=== PATIENT | male | born 1965 | race Caucasian/White ===

== ENCOUNTER 2018-01-11 12:22 | Emergency (ER) | payer OTHER ==
--- NOTE | 2018-01-11 13:34 | ED Physician Documentation ---
History of Present Illness - Stated complaint Stated Complaint: LOWER BODY SWELLING - Chief complaint Chief Complaint: General - History obtained from History obtained from: Patient, Family - History of Present Illness Timing: How many weeks ago (several) Pain level max: 0 Pain level now: 0 Improved by: nothing Worsened by: nothing - Additonal information Additional information: Patient is a 52-year-old male who has not seen a doctor for approximately 10 years, states that 3-4 weeks ago started noting swelling in the bilateral lower extremities and abdomen. States he tried to see a doctor today at [facility] but was sent here for evaluation. Is not short of breath. Does not have any chest pain. Denies any history of alcoholism. Denies any history of hepatitis or cirrhosis. Is not on any medications at home. Has not had any chest pain or difficulty breathing. Review of Systems Ten Systems: 10 systems reviewed and negative Constitutional: denies: Fever, Chills Ears: denies: Ear pain Nose: denies: Rhinorrhea / runny nose, Congestion Throat: denies: Sore throat Cardiac: denies: Chest pain / pressure Respiratory: denies: Cough, Wheezing GI: reports: Abdominal Swelling. denies: Abdominal Pain, Nausea, Vomiting, Diarrhea Skin: denies: Rash Musculoskeletal: denies: Neck pain, Back pain Neurologic: denies: Headache PD PAST MEDICAL HISTORY - Past Medical History Past Medical History: No - Past Surgical History Past Surgical History: Yes HEENT: Tonsil/Adenoidectomy - Present Medications Home Medications: Ambulatory Orders Medication Instructions Recorded Confirmed Furosemide [Lasix] 20 mg PO DAILY #7 tablet 01/11/18 - Allergies Allergies/Adverse Reactions: Allergies Allergy/AdvReac Type Severity Reaction Status Date / Time No Known Drug Allergies Allergy Verified 01/11/18 12:34 - Social History Does the pt smoke?: No Smoking Status: Never smoker Does the pt drink ETOH?: Yes Does the pt have substance abuse?: No PD ED PE NORMAL - Vitals Vital signs reviewed: Yes - General General: Alert and oriented X 3, No acute distress - HEENT HEENT: Moist mucous membranes - Neck Neck: Supple, no meningeal sign - Cardiac Cardiac: RRR, Strong equal pulses - Respiratory Respiratory: No respiratory distress, Clear bilaterally - Abdomen Abdomen: Soft, Other (distended, +fluid wave) - Back Back: No CVA TTP - Derm Derm: Warm and dry, No rash - Extremities Extremities: Other (2+ BLE edema, pitting) - Neuro Neuro: Alert and oriented X 3 - Psych Psych: Normal mood, Normal affect Results - Vitals Vitals: Vital Signs - 24 hr 01/11/18 01/11/18 12:33 14:53 Temperature 36.4 C L Heart Rate 108 H 105 H Respiratory 18 18 Rate Blood Pressure 143/88 H 142/85 H O2 Saturation 100 100 Oxygen O2 Source Room air - Labs Labs: Microbiology 01/11/18 15:35 Body Fluid Culture - Preliminary Ascities Fluid Laboratory Tests 01/11/18 01/11/18 01/11/18 13:40 13:40 14:01 WBC 9.2 RBC 3.41 L Hgb 11.4 L Hct 34.1 L MCV 100.0 H MCH 33.4 H MCHC 33.4 RDW 13.3 Plt Count 422 MPV 7.4 Neut # 5.7 Lymph # 2.3 [place] # 1.0 Eos # 0.0 Baso # 0.2 H Absolute Nucleated RBC 0.00 Band Neuts % (Manual) Not Reportable Abnorm Lymph % (Manual) Not Reportable Nucleated RBC % 0.0 Neutrophils # (Manual) Not Reportable Lymphocytes # (Manual) Not Reportable Monocytes # (Manual) Not Reportable Eosinophils # (Manual) Not Reportable Basophils # (Manual) Not Reportable Differential Comment MANUAL=AUTO DIFF WBC Morphology 1+ VACUOLATION PT 12.9 H INR 1.1 APTT 27.6 Sodium 136 Potassium 4.4 Chloride 104 Carbon Dioxide 27 Anion Gap 5.0 L BUN 11 Creatinine 0.7 Estimated GFR (MDRD) 119 Glucose 97 Calcium 8.1 L Total Bilirubin 1.2 H AST 24 ALT 11 Alkaline Phosphatase 73 Total Protein 7.3 Albumin 2.2 L Globulin 5.1 H Albumin/Globulin Ratio 0.4 L Lipase 16 L Fluid Source Fluid Color Fluid Clarity Fluid WBC Fluid RBC Fluid Neutrophils % Fluid Lymphocytes % Fluid Macrophages % Fld Mesothelial Cell % 01/11/18 15:35 WBC RBC Hgb Hct MCV MCH MCHC RDW Plt Count MPV Neut # Lymph # [place] # Eos # Baso # Absolute Nucleated RBC Band Neuts % (Manual) Abnorm Lymph % (Manual) Nucleated RBC % Neutrophils # (Manual) Lymphocytes # (Manual) Monocytes # (Manual) Eosinophils # (Manual) Basophils # (Manual) Differential Comment WBC Morphology PT INR APTT Sodium Potassium Chloride Carbon Dioxide Anion Gap BUN Creatinine Estimated GFR (MDRD) Glucose Calcium Total Bilirubin AST ALT Alkaline Phosphatase Total Protein Albumin Globulin Albumin/Globulin Ratio Lipase Fluid Source PERITONIAL Fluid Color STRAW Fluid Clarity CLEAR Fluid WBC 116 Fluid RBC 341 Fluid Neutrophils % 7 Fluid Lymphocytes % 9 Fluid Macrophages % 84 Fld Mesothelial Cell % Not Reportable - Rads (name of study) CT abdomen/pelvis Radiology: Prelim report reviewed, EMP read contemporaneously, See rad report ( Cirrhotic appearing liver with massive ascites) Procedures - Paracentesis Preparation: Consent obtained (written), Ultrasound guidance, Sterile prep and drape, Local anesthesia (2% lido with epi) Location: RLQ Technique: Z-tract, Catheter over needle Fluid: Clear, Sent for cell count, Sent for gram stain, Sent for culture, Sent for albumin, Sent for glucose, Sent for protein, Sent for LDH, Volume - enter cc (1999) Aftercare: No complications, Patient tolerated well, Dressing applied PD MEDICAL DECISION MAKING - ED course Complexity details: reviewed results, re-evaluated patient, considered differential, d/w patient, d/w family ED course: Patient is a 52-year-old male who presents to the emergency department with what appears to be cirrhosis of the liver with massive ascites. This is a new diagnosis for him. Initially denied any history of alcohol abuse, then when pressed further states drink a 12-24 pack of beer daily for approximately 24 years. He states that he did not think this was that much alcohol and it was "only beer". Paracentesis performed in 2 L of fluid removed. He feels better. Will start on Lasix for home. We will have him follow-up with his PCP for further evaluation and care. Likely alcoholic cirrhosis. No evidence of SBP. No fevers. Patient and family counseled regarding signs and symptoms for which I believe and urgent re-evaluation would be necessary. Patient with good understanding of and agreement to plan and is comfortable going home at this time This document was made in part using voice recognition software. While efforts are made to proofread this document, sound alike and grammatical errors may occur. Departure - Departure Disposition: 01 Home, Self Care Clinical Impression: Ascites Qualifiers: Ascites type: due to alcoholic cirrhosis Qualified Code(s): K70.31 - Alcoholic cirrhosis of liver with ascites Cirrhosis Qualifiers: Hepatic cirrhosis type: unspecified hepatic cirrhosis Ascites presence: with ascites Qualified Code(s): K74.60 - Unspecified cirrhosis of liver Condition: Good Instructions: Paracentesis Dc, ED Ascites Follow-Up: CURTIS Davies [Provider Group] - Within 3 Days Prescriptions: Furosemide [Lasix] 20 mg PO DAILY #7 tablet Comments: You appear to have alcoholic cirrhosis of your liver today. We drained fluid off your abdomen and need you to follow up with your doctor within the next 3-4 days for the results and further treatment including referral to a liver specialist. Return if you worsen. Discharge Date/Time: 01/11/18 16:04
[2018-01-11 13:48] LABS: BASOPHILS # (AUTO) 0.2 10^3/uL (0.0-0.1); EOSINOPHILS % (AUTO) 0.4 %; HGB - HEMOGLOBIN 11.4 g/dL (14.0-18.0); LYMPHOCYTES # (AUTO) 2.3 10^3/uL (1.5-3.5); LYMPHOCYTES % (AUTO) 25.4 %; MEAN CORPUSCULAR HEMOGLOBIN 33.4 pg (27.0-31.0); MEAN CORPUSCULAR HGB CONC 33.4 g/dL (32.0-36.0); MEAN PLATELET VOLUME 7.4 fL (7.4-11.4); MONOCYTES % (AUTO) 10.4 %; NEUTROPHILS # (AUTO) 5.7 10^3/uL (1.5-6.6); NEUTROPHILS % (AUTO) 61.8 %; PLT - PLATELET COUNT 422 10^3/uL (130-450); RED BLOOD COUNT 3.41 10^6/uL (4.70-6.10); RED CELL DISTRIBUTION WIDTH 13.3 % (12.0-15.0); WHITE BLOOD COUNT 9.2 x10^3/uL (4.8-10.8)
[2018-01-11 14:11] LABS: ALBUMIN 2.2 g/dL (3.2-5.5); ALBUMIN/GLOBULIN RATIO 0.4 (1.0-2.2); BILIRUBIN,TOTAL 1.2 mg/dL (0.2-1.0); CALCIUM 8.1 mg/dL (8.5-10.3); CREATININE 0.7 mg/dL (0.6-1.2); TOTAL PROTEIN 7.3 g/dL (6.7-8.2)
[2018-01-11 14:15] LABS: INR 1.1 (0.8-1.2); PT - PROTHROMBIN TIME 12.9 secs (9.9-12.6)
[2018-01-11 14:24] LABS: DIFFERENTIAL COMMENT MANUAL=AUTO DIFF
[2018-01-11] MEDS ORDERED: IOPAMIDOL-300 100 ML VIAL ONE (14:25)
[2018-01-11] MEDS ORDERED: LIDOCAINE 2%-EPI 1:100000 20 ML MDV SUBQ STA (14:49)
[2018-01-11] MEDS ORDERED: HYDROmorphone 1 MG/ML SYRINGE IVP STA (14:49)
[2018-01-11 14:54] VITALS: BP 142/85
--- NOTE | 2018-01-11 14:59 | CT Report ---
EXAM: CT ABDOMEN AND PELVIS EXAM DATE: 01/11/2018 02:39 PM. CLINICAL HISTORY: New onset ascites. COMPARISONS: None. TECHNIQUE: Routine helical CT imaging was performed through the abdomen and pelvis. IV contrast: ISOV UE 300 100mL. Enteric contrast: No. Reconstructions: Coronal and sagittal. In accordance with CT protocol optimization, one or more of the following dose reduction techniques w ere utilized for this exam: automated exposure control, adjustment of mA and/or KV based on patient s ize, or use of iterative reconstructive technique. FINDINGS: Lung Bases: Unremarkable. Liver: Cirrhotic appearance with small shrunken size and lobular contour. No masses. Gallbladder/Bile Ducts: Unremarkable. Spleen: Normal. Pancreas: Normal. Adrenal Glands: Normal. Kidneys: Normal. No masses or hydronephrosis. Peritoneal Cavity/Bowel: Massive ascites. No free air or pathologically enlarged lymph nodes. No mass es or acute inflammatory process. The appendix is not definitely seen no definite varices are identif ied. Pelvic Organs: Normal. The bladder and pelvic organs are within normal limits. Vasculature: No aneurysms or other significant abnormality. Bones: No significant abnormality. Other: Subcutaneous edema particularly over the lower abdomen, pelvis, and upper thighs. IMPRESSION: Cirrhotic appearing liver with massive ascites. Otherwise-negative. [facility] Referring Provider Line: [phone] SITE ID: [id number]
[2018-01-11] MEDS ORDERED: IOPAMIDOL-300 100 ML VIAL IVP ONE (15:09)
[2018-01-11 16:11] LABS: CC,BF RBC 341 /mm^3
[2018-01-11 16:17] LABS: BF COLOR STRAW; BF SOURCE PERITONIAL
[2018-01-11 16:45] LABS: LYMPHOCYTES %,BODY FLUID 9; MACROPHAGES %,BODY FLUID 84 %
== END 2018-01-11 16:04 | disposition home or self-care (01) ==
LOC: ED 12:22
DX: K70.31 Alcoholic cirrhosis of liver with ascites (principal)
CPT/HCPCS: 36415; 49082; 49083; 74177; 80053; 81599; 83690; 85025; 85610; 85730; 87070; 87205; 89051; 99283; 99284; J1170; Q9967; 82945; 83615; 84157

== ENCOUNTER 2021-10-28 15:01 | Inpatient (IN) | payer OTHER ==
[2021-10-28 16:10] LABS: BASOPHILS # (AUTO) 0.1 10^3/uL (0.0-0.1); BASOPHILS % (AUTO) 0.6 %; EOSINOPHILS % (AUTO) 0.1 %; HCT - HEMATOCRIT 59.1 % (42.0-52.0); HGB - HEMOGLOBIN 21.4 g/dL (14.0-18.0); LYMPHOCYTES % (AUTO) 5.9 %; MEAN CORPUSCULAR HEMOGLOBIN 35.4 pg (27.0-31.0); MEAN CORPUSCULAR HGB CONC 36.2 g/dL (32.0-36.0); MEAN CORPUSCULAR VOLUME 97.8 fL (80.0-94.0); MEAN PLATELET VOLUME 11.2 fL (7.4-11.4); MONOCYTES # (AUTO) 1.1 10^3/uL (0.0-1.0); MONOCYTES % (AUTO) 6.3 %; NEUTROPHILS # (AUTO) 14.6 10^3/uL (1.5-6.6); NEUTROPHILS % (AUTO) 86.6 %; PLT - PLATELET COUNT 144 10^3/uL (130-450); RED BLOOD COUNT 6.04 10^6/uL (4.70-6.10); WHITE BLOOD COUNT 16.9 x10^3/uL (4.8-10.8)
[2021-10-28 16:39] LABS: ALBUMIN/GLOBULIN RATIO 0.9 (1.0-2.2); BILIRUBIN,TOTAL 1.8 mg/dL (0.2-1.0); CALCIUM 9.3 mg/dL (8.5-10.3); CREATININE 0.9 mg/dL (0.6-1.2); POTASSIUM 3.9 mmol/L (3.5-5.0); TOTAL PROTEIN 8.7 g/dL (6.7-8.2)
[2021-10-28 16:44] LABS: GLUCOSE, URINE (UA) NEGATIVE (NEGATIVE); KETONES,URINE (UA) TRACE mg/dL (NEGATIVE); LEUKOCYTE ESTERASE, URINE NEGATIVE (NEGATIVE); NITRITE,URINE POSITIVE (NEGATIVE); OCCULT BLOOD,URINE NEGATIVE (NEGATIVE); PROTEIN,URINE TRACE mg/dL (NEGATIVE); UROBILINOGEN,URINE 1 (NORMAL) E.U./dL (NORMAL)
[2021-10-28 16:49] LABS: BILIRUBIN,URINE NEGATIVE (NEGATIVE); CLARITY,URINE HAZY (CLEAR); ICTOTEST,URINE NEGATIVE
[2021-10-28] MEDS ORDERED: MAG HYDROX/AL HYDROX/SIMETH 30 ML UDC PO STA (16:49)
[2021-10-28] MEDS ORDERED: LIDOCAINE VISCOUS 2% 15 ML UDC MM STA (16:49)
[2021-10-28] MEDS ORDERED: SODIUM CHLORIDE 0.9% 1,000 ML IV STA ×2 (16:51→20:05)
[2021-10-28 17:00] LABS: BACTERIA,URINE Moderate /HPF (None Seen); CASTS, URINE 3-5 Hyaline Casts /LPF; RBC,URINE 0-5 /HPF (0-5); SQUAMOUS EPITHELIAL CELL,UR FEW Squamous (<= Few)
[2021-10-28] MEDS ORDERED: HYDROmorphone 1 MG/ML CARPUJECT IVP STA ×2 (17:04→19:07)
[2021-10-28] MEDS ORDERED: ONDANSETRON 4 MG/2 ML VIAL IVP STA (17:04)
--- NOTE | 2021-10-28 17:05 | ED Physician Documentation ---
History of Present Illness - Stated complaint Stated Complaint: STOMACH PX - Chief complaint Chief Complaint: Abd Pain - Additonal information Additional information: 56-year-old male presents emergency department for evaluation of acute epi gastric abdominal pain. Nausea and vomiting x1. No melena or hematochezia. He does drink a sixpack of beer daily. He reports that approximately 3 years ago he had acute cirrhosis and received a paracentesis. He attributed this to Tylenol overuse in the setting of migraines. He takes no medications besides Zomig for his migraines. No pertinent past surgical history. Review of Systems Constitutional: denies: Fever, Chills Eyes: reports: Reviewed and negative Ears: reports: Reviewed and negative Nose: reports: Reviewed and negative Throat: reports: Reviewed and negative Cardiac: reports: Reviewed and negative Respiratory: reports: Reviewed and negative GI: reports: Abdominal Pain, Nausea, Vomiting. denies: Constipation, Diarrhea, Hematemesis : reports: Reviewed and negative Skin: reports: Reviewed and negative Musculoskeletal: reports: Reviewed and negative PD PAST MEDICAL HISTORY - Past Surgical History Past Surgical History: Yes HEENT: Tonsil/Adenoidectomy - Present Medications Home Medications: Ambulatory Orders Medication Instructions Recorded Confirmed Furosemide [Lasix] 20 mg PO DAILY #7 tablet 01/11/18 - Allergies Allergies/Adverse Reactions: Allergies Allergy/AdvReac Type Severity Reaction Status Date / Time No Known Drug Allergies Allergy Verified 10/28/21 15:17 - Social History Does the pt smoke?: No Smoking Status: Never smoker Does the pt drink ETOH?: Yes Does the pt have substance abuse?: No PD ED PE EXPANDED - General General: Alert, No acute distress - Cardiac Cardiac: Tachy, Regularly irregular, Radial strong equal, Pedal strong equal, Cap refill < 2 sec - Respiratory Respiratory: Clear to ausultation jo-ann. No: Distress, Labored - Abdomen Abdomen: Normal Bowel sounds, Tender to palpation (Focal tenderness right upper quadrant and epigastrium with mild rebound. No left lower quadrant right lower quadrant abdominal pain. No CVA tenderness.), Guarding. No: Rebound - Derm Derm: Normal color, Warm and dry. No: Rash - Extremities Extremities: Normal. No: Deformity, Tenderness - Neuro Neuro: Alert and Oriented X 3, CNII-XII intact Results - Vitals Vitals: Vital Signs - 24 hr 10/28/21 10/28/21 10/28/21 15:14 15:59 17:32 Temperature 36.6 C 37 C Heart Rate 102 H 108 H 107 H Respiratory 15 14 13 Rate Blood Pressure 141/104 H 158/93 H 142/92 H O2 Saturation 99 99 98 10/28/21 19:00 Temperature Heart Rate 110 H Respiratory 18 Rate Blood Pressure 163/99 H O2 Saturation 98 Oxygen O2 Source Room air - Labs Labs: Laboratory Tests 10/28/21 10/28/21 10/28/21 15:57 15:57 16:40 WBC 16.9 H RBC 6.04 Hgb 21.4 H Hct 59.1 H MCV 97.8 H MCH 35.4 H MCHC 36.2 H RDW 17.0 H Plt Count 144 MPV 11.2 Neut # (Auto) 14.6 H Lymph # (Auto) 1.0 L [place] # (Auto) 1.1 H Eos # (Auto) 0.0 Baso # (Auto) 0.1 Absolute Nucleated RBC 0.00 Nucleated RBC % 0.0 Sodium 132 L Potassium 3.9 Chloride 92 L Carbon Dioxide 27 Anion Gap 13.0 BUN 6 Creatinine 0.9 Estimated GFR (MDRD) 88 L Glucose 148 H Calcium 9.3 Total Bilirubin 1.8 H AST 69 H ALT 57 Alkaline Phosphatase 179 H Total Protein 8.7 H Albumin 4.0 Globulin 4.7 H Albumin/Globulin Ratio 0.9 L Lipase 1020 H Urine Color DARK YELLOW Urine Clarity HAZY Urine pH 5.0 Ur Specific [place] >=1.030 H Urine Protein TRACE Urine Glucose (UA) NEGATIVE Urine Ketones TRACE Urine Occult Blood NEGATIVE Urine Nitrite POSITIVE H Urine Bilirubin NEGATIVE Urine Urobilinogen 1 (NORMAL) Ur Leukocyte Esterase NEGATIVE Urine RBC 0-5 Urine WBC 4-5 Ur Squamous Epith Cells FEW Squamous Urine Bacteria Moderate H Urine Casts 3-5 Hyaline Casts Ur Microscopic Review INDICATED Urine Culture Comments INDICATED - Rads (name of study) abd US Radiology: Final report received (Markedly limited exam due to patient's body habitus. Hepatic steatosis markedly enlarged liver. Polyp within the gallbladder. Questionable gallbladder wall thickening. CBD 3.5mm) CT abd Radiology: Final report received (Mild uncomplicated acute interstitial pancreatitis predominantly involving the pancreatic tail. Moderate left upper quadrant inflammatory change. Hepatic steatosis with trace perihepatic ascites.) PD MEDICAL DECISION MAKING - ED course Complexity details: reviewed old records, reviewed results, re-evaluated patient, d/w patient ED course: 56-year-old male who is a daily drinker of approximately 6 beers presents emergency department with acute upper abdominal pain and vomiting. Screening labs are most significant for leukocytosis of nearly 17,000 as well as a fairly elevated hemoglobin of almost 22. His BUN and creatinine are preserved though he does have a mild T bili elevation of 1.8. His lipase is over 1000. He does have some modest AST elevation as well as an alk phos. Abdominal ultrasound was technically difficult given body habitus but there were no findings to suggest obstruction. His CT of the abdomen does show simple appearing pancreatitis. Here in the emergency department the patient was repleted with 2 L of IV fluids. But given the new findings of pancreatitis as well as alcohol abuse he was presented to our hospitalist Dr. Austin for further evaluation and treatment. We did discuss the modest leukocytosis as well as nitrite positive urine with bacteria. Will defer antibiotics at this time as patient is without urinary symptoms. Patient is aware of plan and findings and is in agreement. Departure - Departure Disposition: 66 [facility] [place] DC/Xfer Clinical Impression: Alcohol abuse Acute pancreatitis Qualifiers: Pancreatitis type: unspecified pancreatitis type Acute pancreatitis complication: unspecified Qualified Code(s): K85.90 - Acute pancreatitis without necrosis or infection, unspecified
[2021-10-28] MEDS ORDERED: IOVERSOL 320 100 ML VIAL IVP ONE ×2 (17:32→20:25)
--- NOTE | 2021-10-28 19:00 | Ultrasound Report ---
PROCEDURE: Abdomen Limited INDICATIONS: pancreatitis TECHNIQUE: Real-time focused scanning was performed of the abdomen, with image documentation. COMPARISON: Correlation made to CT performed the same day. FINDINGS: The liver is mildly enlarged measuring 19.0 cm in length demonstrating heterogeneous hyper echoic parenchyma and no discrete mass visible on this examination. There is trace perihepatic ascite s adjacent to the right hepatic lobe. There is a 6 mm nonmobile echogenic focus adherent to the gallbladder wall. The wall is normal thickn ess at 3.6 mm in maximal diameter. No pericholecystic fluid or sonographic Fitch sign. The right kidney is normal size measuring 9.6 cm in length. The cortex is normal thickness and echoge nicity. No hydronephrosis. No perirenal fluid. The teresa hepatis area and pancreas were not well seen due to lack of good acoustic window. IMPRESSION: 1. Technically difficult exam secondary to patient body habitus and bowel gas. 2. Hepatic steatosis and mild hepatomegaly. 3. 6 mm adherent gallstone versus polyp or tumefactive sludge. No sonographic evidence of acute herman cystitis. 4. Preliminary results conveyed by the installation engineer to the ordering provider. Reviewed by: Claribel Toth MD on 10/28/2021 6:59 PM PST Approved by: Claribel Toth MD on 10/28/2021 6:59 PM PST Station ID: [id number]
--- NOTE | 2021-10-28 19:07 | CT Report ---
PROCEDURE: Abdomen/Pelvis W INDICATIONS: acute pancreatitis CONTRAST: IV CONTRAST: Optiray 320 ml: 100 PO CONTRAST: *NO PO CONTRAST TECHNIQUE: After the administration of IV contrast, 5 mm thick sections acquired from the diaphragms to the symp hysis. 5 mm thick coronal and sagittal reformats were acquired. For radiation dose reduction, the f ollowing was used: automated exposure control, adjustment of mA and/or kV according to patient size. COMPARISON: Correlation made to ultrasound performed the same day. FINDINGS: Image quality: Excellent. ABDOMEN: Lung bases: There are mild atelectatic changes present at the left lung base with elevation left esther diaphragm, likely reactive.. Heart size is normal. Solid organs: The liver is mildly enlarged and markedly hypodense, slightly heterogeneous. No intrahe patic biliary dilatation. The gallbladder contains a single hyperdense focus dependently measuring ab out 4 mm, potentially corresponding to the ultrasound finding. The spleen is normal size. No adrenal nodules. No hydronephrosis in either kidney. There is focal cortical loss in the anterior lower pole of left kidney, potentially prior partial nephrectomy. The tail of the pancreas is indistinct, slightly enlarged, and demonstrates moderate peripancreatic i nflammation, fat stranding, fascial thickening, and fluid. There is trace fluid layering caudally in the left paracolic gutter. The gland enhances normally. There are a few scattered pancreatic calcific ations. No pancreatic ductal dilatation. No biliary tree dilatation. Peritoneum and bowel: There is extensive sigmoid diverticulosis and moderate descending colon diverti culosis. Small bowel is decompressed. The stomach is normal. Nodes and vessels: The splenic vein remains opacified. Mild atherosclerotic calcification of the aort a. No retroperitoneal or mesenteric adenopathy by size criteria. Aorta and inferior vena cava are no rmal in size. Miscellaneous: No ventral hernias. PELVIS: Genitourinary: Bladder wall thickness is normal. Normal size prostate gland. Miscellaneous: No inguinal hernias or adenopathy. Bones: No suspicious bony lesions. No vertebral body compression fractures. IMPRESSION: 1. Mild, uncomplicated acute interstitial pancreatitis predominantly involving the pancreatic tail. T here is moderate left upper quadrant inflammatory change. 2. Markedly hepatic steatosis and trace perihepatic ascites. 3. Focal left renal cortical loss, potentially prior infection or partial nephrectomy. 4. Single focal 4 mm hyperdensity in the gallbladder, nonspecific but nonobstructing. 5. Colonic diverticulosis without acute diverticulitis. Reviewed by: Claribel Toth MD on 10/28/2021 7:06 PM PST Approved by: Claribel Toth MD on 10/28/2021 7:06 PM PST Station ID: [id number]
[2021-10-28] MEDS ORDERED: SODIUM CHLORIDE FLUSH 0.9% 10 ML SYRINGE IVP PRN (20:05)
[2021-10-28] MEDS ORDERED: ONDANSETRON 4 MG/2 ML VIAL IVP PRN (20:05)
[2021-10-28] MEDS ORDERED: MORPHINE 2 MG/ML CARPUJECT IVP PRN (20:05)
--- NOTE | 2021-10-28 20:10 | HISTORY & PHYSICAL EXAMINATION ---
Chief Complaint - Chief Complaint Chief Complaint: epigastric pain History of Present Illness - Admitted From [facility] - History Obtained From Records Reviewed: yes History obtained from: patient - History of Present Illness HPI Comment/Other: 56-year-old male who presented to the ED with epigastric abdominal pain which started last night. Woke him up from sleep. It was a constant, sharp nonradiating pain which he rated 6 out of 10. He reported an episode of nausea and vomiting. He drinks a 6 pack of beer daily, and last drank last night. Denied any previous occurrence of similar symptoms. He denied chest pain, dyspnea, fever or chills. In the ED work-up included a CT of the abdomen pelvis which showed pancreatitis. Lipase level was 1020. He was presented for admission for further management of his pancreatitis. History - Past Medical History Cardiovascular: reports: Hypertension Neuro: reports: Migraines GI: reports: GERD, Cirrhosis MRSA Hx?: No - Past Surgical History HEENT: reports: Tonsil/Adenoidectomy - Family & Social History Family History Comment/Other: Patient denies any significant family history Living arrangement: At home Social History Notes: Smokes 1ppd X 41 yrs. Drinks a 6pack of beer daily. Denies recreational substance use. Lives at home with his and son - POLST Patient has POLST: No POLST Status: Full Code Meds/Allgy - Home Medications Home Medications: Ambulatory Orders Medication Instructions Recorded Confirmed Furosemide [Lasix] 20 mg PO DAILY #7 tablet 01/11/18 - Allergies Allergies/Adverse Reactions: Allergies Allergy/AdvReac Type Severity Reaction Status Date / Time No Known Drug Allergies Allergy Verified 10/28/21 15:17 Review of Systems - Constitutional Constitutional: denies: Fever - Eyes Eyes: denies: Pain - Ears, Nose & Throat Ears, Nose & Throat: denies: Ear pain, Sore throat - Cardiovascular Cariovascular: denies: Chest pain, Lightheadedness, Syncope - Respiratory Respiratory: denies: Cough, Sputum production, Wheezing, SOB at rest - Gastrointestinal Gastrointestinal: reports: Abdominal pain, Nausea, Vomiting, Reflux/heartburn - Genitourinary Genitourinary: denies: Dysuria, Frequency, Urgency, Hematuria - Musculoskeletal Musculoskeletal: denies: Muscle pain, Back pain, Muscle aches - Integumentary Integumentary: denies: Rash, Pruritis, Lesions - Neurological Neurological: denies: General weakness, Focal weakness, Headache, Dizziness - Psychiatric Psychiatric: denies: Depression, Anxiety - Endocrine Endocrine: denies: Polyuria, Polydypsia - Hematologic/Lymphatic Hematologic/Lymphatic: denies: Anemia, Bruising, Petechiae Prior Level of Functionality: Patient is independent of activities of daily living Exam - Vital Signs Vital Signs: Vital Signs x48h Temp Pulse Resp BP Pulse Ox 10/28/21 19:00 110 H 18 163/99 H 98 10/28/21 17:32 37 C 107 H 13 142/92 H 98 10/28/21 15:59 108 H 14 158/93 H 99 10/28/21 15:14 36.6 C 102 H 15 141/104 H 99 - Physical Exam General Appearance: positive: Alert, Mild distress, Moderate distress Eyes Bilateral: positive: PERRL, EOMI ENT: positive: Dry mucous membranes Neck: positive: No JVD, Trachea midline Respiratory: positive: Chest non-tender, No respiratory distress, Breath sounds nml. negative: Wheezes, Rales, Rhonchi Cardiovascular: positive: No murmur, Tachycardia Abdomen: positive: Nml bowel sounds, No distention, Tenderness. negative: Guarding, Rebound Back: positive: Nml inspection Skin: positive: Color nml, No rash, Warm, Dry Extremities: positive: Non-tender, Full ROM, Nml appearance Neurologic/Psychiatric: positive: Oriented x3, Mood/affect nml Conclusion/Plan - Problem List (1) Acute pancreatitis Conclusion/Plan: 2/2 Alcohol abuse Lipase level 1020. Will trend daily NPO. IV hydration with D5+1/2NS at 150ml/hr CIWA protocol initiated Qualifiers: Pancreatitis type: unspecified pancreatitis type Acute pancreatitis complication: unspecified Qualified Code(s): K85.90 - Acute pancreatitis without necrosis or infection, unspecified (2) Leukocytosis Conclusion/Plan: ?Reactive vs Infectious. WBC 16.9. Will trend. If further elevated with obtain blood cultures and initiate emperic antibiotics (3) Alcohol abuse Conclusion/Plan: CIWA protocol initiated IV hydration with D5+1/2NS at 150ml/r (4) Hypertension Conclusion/Plan: Not on any medication Stopped last prescribed medication due to ?side effects Labetalol 10mg IV q6hrs prn for SBP > 160 - Lab Results Fish Bones: 10/28/21 20:23 10/28/21 20:23 Core Measures - Anticipated LOS I expect patient to be DC'd or transferred within 96 hours.: Yes - DVT/VTE - Prophylaxis VTE/DVT Device ordered at admit?: Yes
[2021-10-28] MEDS ORDERED: LORazepam 2 MG/ML VIAL IVP PRN (20:11)
[2021-10-28 20:31] LABS: BASOPHILS # (AUTO) 0.1 10^3/uL (0.0-0.1); BASOPHILS % (AUTO) 0.4 %; EOSINOPHILS % (AUTO) 0.1 %; HCT - HEMATOCRIT 57.1 % (42.0-52.0); HGB - HEMOGLOBIN 20.5 g/dL (14.0-18.0); LYMPHOCYTES # (AUTO) 1.4 10^3/uL (1.5-3.5); LYMPHOCYTES % (AUTO) 8.8 %; MEAN CORPUSCULAR HEMOGLOBIN 35.2 pg (27.0-31.0); MEAN CORPUSCULAR HGB CONC 35.9 g/dL (32.0-36.0); MEAN CORPUSCULAR VOLUME 98.1 fL (80.0-94.0); MONOCYTES % (AUTO) 6.2 %; NEUTROPHILS % (AUTO) 84.1 %; PLT - PLATELET COUNT 141 10^3/uL (130-450); RED BLOOD COUNT 5.82 10^6/uL (4.70-6.10); RED CELL DISTRIBUTION WIDTH 16.3 % (12.0-15.0); WHITE BLOOD COUNT 15.4 x10^3/uL (4.8-10.8)
[2021-10-28 20:37] LABS: INR 1.2 (0.8-1.2); PT - PROTHROMBIN TIME 13.1 secs (9.9-12.6)
[2021-10-28 20:41] LABS: ALBUMIN 3.3 g/dL (3.2-5.5); ALBUMIN/GLOBULIN RATIO 0.8 (1.0-2.2); BILIRUBIN,TOTAL 1.8 mg/dL (0.2-1.0); CALCIUM 8.5 mg/dL (8.5-10.3); CREATININE 0.9 mg/dL (0.6-1.2); POTASSIUM 4.4 mmol/L (3.5-5.0); TOTAL PROTEIN 7.4 g/dL (6.7-8.2)
[2021-10-28] MEDS ORDERED: DEXTROSE 5%-0.9% NACL 1,000 ML IV SCH (21:00)
[2021-10-28] MEDS: oxyCODONE 5 MG TABLET PO PRN (21:08)
[2021-10-28 21:12] LABS: B. PARAPERTUSSIS- RESP PCR PAN NOT DETECTED; B. PERTUSSIS- RESP PCR PANEL NOT DETECTED; C. PNEUMONIAE- RESP PCR PANEL NOT DETECTED; CORONAVIRUS 229E-RESP PCR NOT DETECTED; CORONAVIRUS HKU1-RESP PCR NOT DETECTED; CORONAVIRUS NL63-RESP PCR NOT DETECTED; CORONAVIRUS OC43-RESP PCR NOT DETECTED; HUMAN METAPNEUMOVIRUS NOT DETECTED; INFLUENZA A- RESP PCR PANEL NOT DETECTED; INFLUENZA B - RESP PCR PANEL NOT DETECTED; M. PNEUMONIAE- RESP PCR PANEL NOT DETECTED; PARAINFLUENZA VIRUS 1 NOT DETECTED; PARAINFLUENZA VIRUS 2 NOT DETECTED; PARAINFLUENZA VIRUS 3 NOT DETECTED; PARAINFLUENZA VIRUS 4 NOT DETECTED; RHINOVIRUS/ENTEROVIRUS NOT DETECTED; RSV- RESP PCR PANEL NOT DETECTED; SARS-CoV-2 -RESP PCR PANEL NOT DETECTED
[2021-10-28] MEDS ORDERED: MAGNESIUM HYDROXIDE 2,400 MG/30 ML UDC PO ONE (21:21)
[2021-10-28] MEDS: DEXTROSE 5%-0.9% NACL 1,000 ML IV SCH (21:43)
[2021-10-28] MEDS ORDERED: LABETALOL 20 MG/4 ML SYRINGE IVP PRN (22:16)
[2021-10-29] MEDS: SODIUM CHLORIDE FLUSH 0.9% 10 ML SYRINGE IVP SCH ×3 (00:25→16:24)
[2021-10-29] MEDS: oxyCODONE 5 MG TABLET PO PRN ×5 (00:25→22:15)
[2021-10-29] MEDS: DEXTROSE 5%-0.9% NACL 1,000 ML IV SCH ×4 (03:56→22:50)
[2021-10-29 05:02] LABS: BASOPHILS # (AUTO) 0.1 10^3/uL (0.0-0.1); BASOPHILS % (AUTO) 0.4 %; EOSINOPHILS # (AUTO) 0.1 10^3/uL (0.0-0.7); EOSINOPHILS % (AUTO) 0.4 %; HGB - HEMOGLOBIN 19.7 g/dL (14.0-18.0); LYMPHOCYTES # (AUTO) 1.1 10^3/uL (1.5-3.5); LYMPHOCYTES % (AUTO) 6.8 %; MEAN CORPUSCULAR HEMOGLOBIN 35.7 pg (27.0-31.0); MEAN CORPUSCULAR HGB CONC 36.5 g/dL (32.0-36.0); MEAN CORPUSCULAR VOLUME 97.8 fL (80.0-94.0); MEAN PLATELET VOLUME 10.7 fL (7.4-11.4); MONOCYTES # (AUTO) 1.1 10^3/uL (0.0-1.0); MONOCYTES % (AUTO) 7.1 %; NEUTROPHILS # (AUTO) 13.7 10^3/uL (1.5-6.6); NEUTROPHILS % (AUTO) 84.9 %; PLT - PLATELET COUNT 120 10^3/uL (130-450); RED BLOOD COUNT 5.52 10^6/uL (4.70-6.10); RED CELL DISTRIBUTION WIDTH 16.1 % (12.0-15.0); WHITE BLOOD COUNT 16.2 x10^3/uL (4.8-10.8)
[2021-10-29 05:15] LABS: ALBUMIN/GLOBULIN RATIO 0.8 (1.0-2.2); BILIRUBIN,TOTAL 1.7 mg/dL (0.2-1.0); CALCIUM 8.1 mg/dL (8.5-10.3); CREATININE 0.9 mg/dL (0.6-1.2); MAGNESIUM 1.9 mg/dL (1.7-2.8); TOTAL PROTEIN 6.7 g/dL (6.7-8.2)
[2021-10-29] MEDS: PANTOPRAZOLE 40 MG TABLET PO SCH (06:44)
[2021-10-29] MEDS: THIAMINE 100 MG TABLET PO SCH (08:20)
[2021-10-29] MEDS: PRENATAL VITAMIN TABLET PO SCH (08:20)
--- NOTE | 2021-10-29 11:55 | PROVIDER PROGRESS NOTE ---
Assessment/Plan - Problem List (1) Acute pancreatitis Qualifiers: Pancreatitis type: unspecified pancreatitis type Acute pancreatitis complication: unspecified Qualified Code(s): K85.90 - Acute pancreatitis without necrosis or infection, unspecified Assessment/Plan: 10/29 improved. his Acute pancreatitis is likely secondary to his alcohol abuse. Patient reported his abdominal pain is improved but is still feeling of tenderness on his upper quadrant. Tachycardia is improved and HR 101 now. his Lipase is down to 320 from 1000. 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 UA reveal bacterial at urine and positive nitrite. but pt denies any dysuria, or fever/chill. agree admission provider, hold antibiotics now. (3) Alcohol abuse Conclusion/Plan: pt does not show alcohol withdrawal symptoms now. CIMA protocol initiated, continue and vitamin B1. social worker school already saw pt and tried to help pt for alcohol abuse. per social worker school's report pt is not ready to quit alcohol yet. (4) Hypertension stable, continue labetalol PRN (5)polycythemia vera pt has HGB 19.7 and WBC 16.2. pt is Asymptomatic. pt report"beside of abdominal pain, you have no other complaints." pt denies dizziness, shortness of breath, vision problem or headache. pt is still currently cigarette smoker. Pt may followup with direct response consultant as out-pt. - Current Meds Current Meds: Current Medications Generic Name Dose Route Start Last Admin Trade Name Freq PRN Reason Stop Dose Admin Dextrose/Sodium Chloride 1,000 mls @ 150 mls/hr 10/28/21 21:33 10/29/21 10:38 D5ns IV 150 mls/hr .Q6H40M EMELINA Administration Oxycodone HCl 5 mg 10/28/21 20:05 10/29/21 06:47 Oxycodone 5 Mg Tablet PO 5 mg Q4HR PRN Administration Pain 5 to 7 Pantoprazole Sodium 40 mg 10/29/21 07:00 10/29/21 06:44 Pantoprazole 40 Mg Tablet PO 40 mg QDAC EMELINA Administration Multivit/Folic Acid/Iron 1 tab 10/29/21 09:00 10/29/21 08:20 Vitamin Tablet PO 1 tab DAILY EMELINA Administration Sodium Chloride 10 ml 10/28/21 20:05 10/28/21 21:10 Sodium Chloride Flush 0.9% 10 Ml Syringe IVP 10 ml PRN PRN Administration NEEDED PER PROVIDER ORDERS Sodium Chloride 10 ml 10/29/21 01:00 10/29/21 08:21 Sodium Chloride Flush 0.9% 10 Ml Syringe IVP Not Given 0100,0900,1700 EMELINA Thiamine HCl 100 mg 10/29/21 09:00 10/29/21 08:20 Thiamine 100 Mg Tablet PO 100 mg DAILY EMELINA Administration - Lab Result Fish Bone Diagrams: 10/29/21 04:54 10/29/21 04:54 - Additional Planning My Orders: My Active Orders 10/29/21 Breakfast Clear Liquid Diet [DIET] 10/30/21 09:00 Enoxaparin [Lovenox] 40 mg SUBQ DAILY Subjective - Subjective Patient Reports: Resting Comfortably Objective Vital Signs: Vital Signs - 24 hr 10/28/21 10/28/21 10/28/21 15:14 15:59 17:32 Temperature 36.6 C 37 C Heart Rate 102 H 108 H 107 H Heart Rate [ Brachial] Respiratory 15 14 13 Rate Blood Pressure 141/104 H 158/93 H 142/92 H Blood Pressure [Left Brachial artery] O2 Saturation 99 99 98 10/28/21 10/28/21 10/29/21 19:00 21:15 00:00 Temperature 36.8 C 37.1 C Heart Rate 110 H Heart Rate [ 123 H 107 H Brachial] Respiratory 18 22 23 Rate Blood Pressure 163/99 H Blood Pressure 126/87 H 129/69 [Left Brachial artery] O2 Saturation 98 95 96 10/29/21 07:35 Temperature 37.1 C Heart Rate Heart Rate [ 101 H Brachial] Respiratory 16 Rate Blood Pressure Blood Pressure 140/72 H [Left Brachial artery] O2 Saturation 96 Oxygen O2 Source Room air I&O (Last 24 Hrs): Intake and Output Totals x24h 10/27/21 10/28/21 10/29/21 23:59 23:59 23:59 Intake Total 1882 1991.5 Balance 1882 1991.5 General: Alert, Oriented x3, Cooperative, No acute distress HEENT: Atraumatic Neck: Supple Lymphatic: no adenopathy Neuro: Alert, Non Focal, Oriented Times 3 Cardiovascular: Regular rate, Normal S1, Normal S2 Respiratory: Chest non-tender, No respiratory distress Abdomen: Normal bowel sounds, Soft Extremities: Normal pulses - Results Results: Laboratory Results WBC 16.2 x10^3/uL (4.8-10.8) H 10/29/21 04:54 RBC 5.52 10^6/uL (4.70-6.10) 10/29/21 04:54 Hgb 19.7 g/dL (14.0-18.0) H 10/29/21 04:54 Hct 54.0 % (42.0-52.0) H 10/29/21 04:54 MCV 97.8 fL (80.0-94.0) H 10/29/21 04:54 MCH 35.7 pg (27.0-31.0) H 10/29/21 04:54 MCHC 36.5 g/dL (32.0-36.0) H 10/29/21 04:54 RDW 16.1 % (12.0-15.0) H 10/29/21 04:54 Plt Count 120 10^3/uL (130-450) L 10/29/21 04:54 MPV 10.7 fL (7.4-11.4) 10/29/21 04:54 Neut # (Auto) 13.7 10^3/uL (1.5-6.6) H 10/29/21 04:54 Lymph # (Auto) 1.1 10^3/uL (1.5-3.5) L 10/29/21 04:54 [place] # (Auto) 1.1 10^3/uL (0.0-1.0) H 10/29/21 04:54 Eos # (Auto) 0.1 10^3/uL (0.0-0.7) 10/29/21 04:54 Baso # (Auto) 0.1 10^3/uL (0.0-0.1) 10/29/21 04:54 Absolute Nucleated RBC 0.00 x10^3/uL 10/29/21 04:54 Nucleated RBC % 0.0 /100WBC 10/29/21 04:54 PT 13.1 secs (9.9-12.6) H 10/28/21 20:23 INR 1.2 (0.8-1.2) 10/28/21 20:23 Sodium 135 mmol/L (135-145) 10/29/21 04:54 Potassium 4.0 mmol/L (3.5-5.0) 10/29/21 04:54 Chloride 99 mmol/L (101-111) L 10/29/21 04:54 Carbon Dioxide 28 mmol/L (21-32) 10/29/21 04:54 Anion Gap 8.0 (6-13) 10/29/21 04:54 BUN 5 mg/dL (6-20) L 10/29/21 04:54 Creatinine 0.9 mg/dL (0.6-1.2) 10/29/21 04:54 Estimated GFR (MDRD) 88 (>89) L 10/29/21 04:54 Glucose 126 mg/dL (70-100) H 10/29/21 04:54 Calcium 8.1 mg/dL (8.5-10.3) L 10/29/21 04:54 Magnesium 1.9 mg/dL (1.7-2.8) 10/29/21 04:54 Total Bilirubin 1.7 mg/dL (0.2-1.0) H 10/29/21 04:54 AST 39 IU/L (10-42) 10/29/21 04:54 ALT 37 IU/L (10-60) 10/29/21 04:54 Alkaline Phosphatase 123 IU/L (42-121) H 10/29/21 04:54 Total Protein 6.7 g/dL (6.7-8.2) 10/29/21 04:54 Albumin 3.0 g/dL (3.2-5.5) L 10/29/21 04:54 Globulin 3.7 g/dL (2.1-4.2) 10/29/21 04:54 Albumin/Globulin Ratio 0.8 (1.0-2.2) L 10/29/21 04:54 Lipase 327 U/L (22-51) H 10/29/21 04:54 Urine Color DARK YELLOW 10/28/21 16:40 Urine Clarity HAZY (CLEAR) 10/28/21 16:40 Urine pH 5.0 PH (5.0-7.5) 10/28/21 16:40 Ur Specific [place] >=1.030 (1.002-1.030) H 10/28/21 16:40 Urine Protein TRACE mg/dL (NEGATIVE) 10/28/21 16:40 Urine Glucose (UA) NEGATIVE mg/dL (NEGATIVE) 10/28/21 16:40 Urine Ketones TRACE mg/dL (NEGATIVE) 10/28/21 16:40 Urine Occult Blood NEGATIVE (NEGATIVE) 10/28/21 16:40 Urine Nitrite POSITIVE (NEGATIVE) H 10/28/21 16:40 Urine Bilirubin NEGATIVE (NEGATIVE) 10/28/21 16:40 Urine Urobilinogen 1 (NORMAL) E.U./dL (NORMAL) 10/28/21 16:40 Ur Leukocyte Esterase NEGATIVE (NEGATIVE) 10/28/21 16:40 Urine RBC 0-5 /HPF (0-5) 10/28/21 16:40 Urine WBC 4-5 /HPF (0-3) 10/28/21 16:40 Ur Squamous Epith Cells FEW Squamous (<= Few) 10/28/21 16:40 Urine Bacteria Moderate /HPF (None Seen) H 10/28/21 16:40 Urine Casts 3-5 Hyaline Casts /LPF 10/28/21 16:40 Ur Microscopic Review INDICATED 10/28/21 16:40 Urine Culture Comments INDICATED 10/28/21 16:40 Nasal Adenovirus (PCR) NOT DETECTED 10/28/21 20:05 Nasal B. parapertussis DNA (PCR) NOT DETECTED 10/28/21 20:05 Nasal Coronavir 229E PCR NOT DETECTED 10/28/21 20:05 Nasal Coronavir HKU1 PCR NOT DETECTED 10/28/21 20:05 Nasal Coronavir NL63 PCR NOT DETECTED 10/28/21 20:05 Nasal Coronavir OC43 PCR NOT DETECTED 10/28/21 20:05 Nasal Enterovir/Rhinovir PCR NOT DETECTED 10/28/21 20:05 Nasal Influenza B PCR NOT DETECTED 10/28/21 20:05 Nasal Influenza A PCR NOT DETECTED 10/28/21 20:05 Nasal Parainfluen 1 PCR NOT DETECTED 10/28/21 20:05 Nasal Parainfluen 2 PCR NOT DETECTED 10/28/21 20:05 Nasal Parainfluen 3 PCR NOT DETECTED 10/28/21 20:05 Nasal Parainfluen 4 PCR NOT DETECTED 10/28/21 20:05 Nasal RSV (PCR) NOT DETECTED 10/28/21 20:05 Nasal B.pertussis DNA PCR NOT DETECTED 10/28/21 20:05 Nasal C.pneumoniae (PCR) NOT DETECTED 10/28/21 20:05 Piyush Human Metapneumo PCR NOT DETECTED 10/28/21 20:05 Nasal M.pneumoniae (PCR) NOT DETECTED 10/28/21 20:05 Nasal SARS-CoV-2 (PCR) NOT DETECTED 10/28/21 20:05 ABX Reporting Has patient been on IV antibiotics over the past 48 hours?: No Current Medications - Current Medications Current Medications: Active Medications Enoxaparin Sodium (Enoxaparin 40 Mg/0.4 Ml Syringe) 40 mg SUBQ DAILY [facility] Dextrose/Sodium Chloride (D5ns) 1,000 mls @ 150 mls/hr IV .Q6H40M [facility] Last Admin: 10/29/21 10:38 Dose: 150 mls/hr Documented by: Labetalol HCl (Labetalol 20 Mg/4 Ml Syringe) 10 mg IVP Q6H PRN PRN Reason: PER PHYSICIAN ORDER Lorazepam (Lorazepam 2 Mg/Ml Vial) 1 mg IVP Q30M PRN; Protocol PRN Reason: CIWA >8 Morphine Sulfate (Morphine 2 Mg/Ml Carpuject) 2 mg IVP Q2HR PRN PRN Reason: Pain 8 to 10 Ondansetron HCl (Ondansetron 4 Mg/2 Ml Vial) 4 mg IVP Q6HR PRN PRN Reason: Nausea / Vomiting Oxycodone HCl (Oxycodone 5 Mg Tablet) 5 mg PO Q4HR PRN PRN Reason: Pain 5 to 7 Last Admin: 10/29/21 12:17 Dose: 5 mg Documented by: Pantoprazole Sodium (Pantoprazole 40 Mg Tablet) 40 mg PO QDAC [facility] Last Admin: 10/29/21 06:44 Dose: 40 mg Documented by: Multivit/Folic Acid/Iron ( Vitamin Tablet) 1 tab PO DAILY [facility] Last Admin: 10/29/21 08:20 Dose: 1 tab Documented by: Sodium Chloride (Sodium Chloride Flush 0.9% 10 Ml Syringe) 10 ml IVP PRN PRN PRN Reason: NEEDED PER PROVIDER ORDERS Last Admin: 10/28/21 21:10 Dose: 10 ml Documented by: Sodium Chloride (Sodium Chloride Flush 0.9% 10 Ml Syringe) 10 ml IVP 0100,0900,1700 [facility] Last Admin: 10/29/21 08:21 Dose: Not Given Documented by: Thiamine HCl (Thiamine 100 Mg Tablet) 100 mg PO DAILY [facility] Last Admin: 10/29/21 08:20 Dose: 100 mg Documented by: No Known Home Medications 10/29/21
--- NOTE | 2021-10-29 14:24 | PHARMACY PROGRESS NOTE ---
- Best Possible Medication History Admit Date and Time: 10/28/212004 Processed by: Pharmacy Medication History completed: Yes Patient Interview: Pt interview ONLY source As the person ultimately responsible for medication therapy, providers are able to order a medication from an existing home medication list in [facility] via the "Reconcile Routine" prior to Confirmation of that medication by clerical support. Such practice is discouraged except when the physician, in their clinical judgment, deems that a medical need exists for a medication without regard to previous use.
[2021-10-30] MEDS: SODIUM CHLORIDE FLUSH 0.9% 10 ML SYRINGE IVP SCH ×2 (03:32→08:25)
[2021-10-30] MEDS: oxyCODONE 5 MG TABLET PO PRN ×2 (04:48→10:29)
[2021-10-30] MEDS: DEXTROSE 5%-0.9% NACL 1,000 ML IV SCH (04:49)
[2021-10-30] MEDS: PANTOPRAZOLE 40 MG TABLET PO SCH (06:43)
[2021-10-30 07:09] LABS: BASOPHILS # (AUTO) 0.1 10^3/uL (0.0-0.1); BASOPHILS % (AUTO) 0.4 %; EOSINOPHILS # (AUTO) 0.2 10^3/uL (0.0-0.7); EOSINOPHILS % (AUTO) 1.1 %; HCT - HEMATOCRIT 52.1 % (42.0-52.0); LYMPHOCYTES # (AUTO) 1.8 10^3/uL (1.5-3.5); LYMPHOCYTES % (AUTO) 12.2 %; MEAN CORPUSCULAR HEMOGLOBIN 34.3 pg (27.0-31.0); MEAN CORPUSCULAR HGB CONC 34.5 g/dL (32.0-36.0); MEAN CORPUSCULAR VOLUME 99.2 fL (80.0-94.0); MONOCYTES # (AUTO) 1.1 10^3/uL (0.0-1.0); MONOCYTES % (AUTO) 7.6 %; NEUTROPHILS # (AUTO) 11.3 10^3/uL (1.5-6.6); NEUTROPHILS % (AUTO) 78.1 %; PLT - PLATELET COUNT 111 10^3/uL (130-450); RED BLOOD COUNT 5.25 10^6/uL (4.70-6.10); RED CELL DISTRIBUTION WIDTH 16.3 % (12.0-15.0); WHITE BLOOD COUNT 14.4 x10^3/uL (4.8-10.8)
[2021-10-30 07:35] LABS: ALBUMIN 2.5 g/dL (3.2-5.5); ALBUMIN/GLOBULIN RATIO 0.7 (1.0-2.2); ALKALINE PHOSPHATASE 101 IU/L (42-121); ALT ALANINE AMINOTRANSFERASE 29 IU/L (10-60); AST ASPARTATE AMINOTRANSFERASE 34 IU/L (10-42); BILIRUBIN,TOTAL 2.1 mg/dL (0.2-1.0); BUN - BLOOD UREA NITROGEN < 5 mg/dL (6-20); CALCIUM 7.4 mg/dL (8.5-10.3); CARBON DIOXIDE - CO2 29 mmol/L (21-32); CHLORIDE 99 mmol/L (101-111); CREATININE 0.8 mg/dL (0.6-1.2); GFR - MDRD 101 (>89); GLUCOSE 102 mg/dL (70-100); LIPASE 49 U/L (22-51); POTASSIUM 3.4 mmol/L (3.5-5.0); SODIUM 136 mmol/L (135-145); TOTAL PROTEIN 6.2 g/dL (6.7-8.2)
[2021-10-30] MEDS: PRENATAL VITAMIN TABLET PO SCH (08:25)
[2021-10-30] MEDS: THIAMINE 100 MG TABLET PO SCH (08:25)
[2021-10-30] MEDS ORDERED: ENOXAPARIN 40 MG/0.4 ML SYRINGE SUBQ SCH (09:00)
--- NOTE | 2021-10-30 11:14 | Discharge Plan ---
Discharge Plan Problem Reviewed?: Yes Disposition: Home, Self Care Condition: Fair Prescriptions: Pnv No.121/Iron/Folic Acid [ Multivitamin Tablet] 1 each PO DAILY #30 tablet Thiamine [Vitamin B-1] 100 mg PO DAILY #30 tablet Diet: Soft Shower Restrictions: No Driving Restrictions: No Instruction Topics: Alcoholism Impact, Addiction Alcohol, Pancreatitis Acute Dc Health Concerns: You were admitted for treating acute pancreatitis, caused by excessive alcohol use. Please continue to advance your diet slowly, as tolerated, and you may take Tylenol or Motrin if there is continued abdominal pain or am antacid for indigestion pain. Your blood test showed that you have liver inflammation from your alcohol use. The CT scan of the abdomen showed that you have liver changes of an alcoholic, and fluid in the abdomen (ascites) which is from your liver being inflamed due to excessive alcohol use. If you keep drinking alcohol daily, this will continue to worsen and you will get cirrhosis. Please stop drinking alcohol excessively. Consider getting help with AA. A daily multi-vitamin and a Thiamine vitamin (100 mg daily) is advised for heavy alcohol drinkers (which you can buy [id number]). Plan of Treatment: As above. Care Goals: Improvement in symptoms and stabilization are the goals. Assessment: Patient has declined help from our Meat Stock Clerk for helping with excessive alcohol use. Additional Instructions or Follow Up instructions: If you have new or worsening symptoms, go to a walk-in clinic or come to the ER. No Smoking: If you smoke, Please STOP! Call for help.
--- NOTE | 2021-10-30 12:17 | DISCHARGE SUMMARY ---
Discharge Summary Admit Date: 10/28/21 Discharge Date: 10/30/21 Discharging Provider: Dr Supriya Espinal Primary Care Provider: [facility] Condition at Discharge: Fair Discharge Disposition: 01 Home, Self Care - HPI History of Present Illness: From the admission H&P of Dr. Claudia Austin: 56-year-old male who presented to the ED with epigastric abdominal pain which started last night. Woke him up from sleep. It was a constant, sharp nonradiating pain which he rated 6 out of 10. He reported an episode of nausea and vomiting. He drinks a 6 pack of beer daily, and last drank last night. Denied any previous occurrence of similar symptoms. He denied chest pain, dyspnea, fever or chills. In the ED work-up included a CT of the abdomen pelvis which showed pancreatitis. Lipase level was 1020. He was presented for admission for further management of his pancreatitis. - HOSPITAL COURSE Hospital Course: (1) Acute pancreatitis His acute pancreatitis was likely secondary to his alcohol abuse. He was ordered npo for bowel rest, received IV fluids and pain meds. Tachycardia improved and Lipase dropped from 1020 to 327 then 49 on day of discharge . He was started on clear liquids then advance to pured diet and wanted to be discharged at this point, and stated he could handle advancing his diet and any further pain. He was advised to stop drinking alcohol excessively, and to take a multivitamin daily and thiamine 100 mg daily. (2) Leukocytosis WBC was 16.2. UA revealed bacteria and positive nitrites, but patient denied any dysuria, or fever/chills. No antibiotics were ordered. (3) Alcohol abuse He was ordered to get a Banana Bag for his IV fluids and CIWA protocol initiated for possible withdrawal, which he did not have. A Car Wash Attendant [employer] saw him in consultation for helping to stop alcohol abuse, but he denied having any problem and said he was not ready to quit alcohol yet. The CT scan of the abdomen showed steatorhea of liver and ascites present. He was advised to stop drinking alcohol excessively by the Hospitalist and to take a multivitamin daily and thiamine 100 mg daily. (4) Elevated LFTs With abstinence from alcohol, his AST/ALT improved from 69/57, 52/45, 39/37 then 34/29. (5) Hypertension BP was elevated at admission possibly from pain. Labetalol PRN was ordered. BP was stable at discharge on no meds. (6) Tobacco use A nicotine patch prn was ordered here. Smoking cessation was advised at discharge. (7) Polycythemia Patient has HGB of 19.7 and WBC 16.2. He denied dizziness, shortness of breath, vision problems or headache. Possibly the high HGB is from being a cigarette smoker plus being dehydrated. Pt may followup with a PCP or a Charrer as out-pt. - ALLERGIES Allergies/Adverse Reactions: Allergies Allergy/AdvReac Type Severity Reaction Status Date / Time No Known Drug Allergies Allergy Verified 10/28/21 15:17 - MEDICATIONS Home Medications: Ambulatory Orders Medication Instructions Recorded Confirmed Pnv No.121/Iron/Folic Acid 1 each PO DAILY #30 tablet 10/30/21 [ Multivitamin Tablet] Thiamine [Vitamin B-1] 100 mg PO DAILY #30 tablet 10/30/21 - PHYSICAL EXAM AT DISCHARGE General Appearance: positive: No acute distress, Alert Eyes Bilateral: positive: Normal inspection, EOMI ENT: positive: ENT inspection nml, No signs of dehydration Neck: positive: Nml inspection, Thyroid nml, No JVD Respiratory: positive: No respiratory distress Cardiovascular: positive: Regular rate & rhythm, No murmur Abdomen: positive: Non-tender, Nml bowel sounds, No distention Skin: positive: Warm, Dry Extremities: positive: Non-tender, No pedal edema Neurologic/Psychiatric: positive: Oriented x3 (Non-focal) - LABS Result Diagrams: 10/30/21 07:01 10/30/21 07:01 - DIAGNOSTIC IMAGING Diagnostic Imaging Results: Final report reviewed - FOLLOW UP Follow Up: Establish with PCP recommended. - TIME SPENT Time Spent in Discharge (Minutes): 30
[2021-10-30 12:28] VITALS: BP 127/68
== END 2021-10-30 13:05 | disposition home or self-care (01) | DRG 440 ==
LOC: ED 15:01 → MS3 20:05
PROVIDERS: ADMIT Internal Medicine; ATTEND Internal Medicine
DX: K85.20 Alcohol induced acute pancreatitis without necrosis or infection (principal); F10.10 Alcohol abuse, uncomplicated; D45 Polycythemia vera; I10 Essential (primary) hypertension; K21.9 Gastro-esophageal reflux disease without esophagitis; F17.210 Nicotine dependence, cigarettes, uncomplicated; D72.829 Elevated white blood cell count, unspecified; R79.89 Other specified abnormal findings of blood chemistry; R82.71 Bacteriuria; Z20.822 Contact with and (suspected) exposure to COVID-19
CPT/HCPCS: 0202U; 36415; 74177; 76705; 80053; 81001; 83690; 83735; 85025; 85610; 87086; 96361; 96374; 96375; 99283; 99285; A9270; J1170; J1650; Q9967; 81003

== ENCOUNTER 2022-12-20 13:55 | Emergency (ER) | payer OTHER ==
[2022-12-20] MEDS ORDERED: CHERRY SYRUP 10 ML UDC PO ONE (15:03)
[2022-12-20] MEDS ORDERED: DEXAMETHASONE 10 MG/ML VIAL PO STA (15:03)
--- NOTE | 2022-12-20 15:06 | ED Physician Documentation ---
History of Present Illness - Stated complaint Stated Complaint: RT HAND NUMBNESS - Chief complaint Chief Complaint: Ext Problem - History obtained from History obtained from: Patient - History of Present Illness Timing: Yesterday - Additonal information Additional information: 57-year-old Vini Fisher is had a remote traumatic brain injury. Yesterday he dropped a cigarette and this is unusual for him. 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 He indicates that he had a resolution of the symptoms yesterday and went to bed and awoke this morning again with this funny weakness to the thumb and finger on the right hand. He denies any numbness he denies any pain associated with this he denies any radiation he denies any pain in his neck. He has a remote injury with a skull fracture after a fall down a flight of stairs. Review of Systems Constitutional: denies: Fever Eyes: denies: Decreased vision Ears: denies: Ear pain Nose: denies: Rhinorrhea / runny nose, Congestion Throat: denies: Sore throat Cardiac: denies: Chest pain / pressure Respiratory: denies: Dyspnea, Cough GI: denies: Abdominal Pain, Nausea, Vomiting, Diarrhea : denies: Dysuria, Frequency Skin: denies: Rash Musculoskeletal: denies: Neck pain, Back pain, Extremity pain, Joint pain, Extremity swelling, Joint swelling Neurologic: reports: Focal weakness (to the right index and thumb). denies: Generalized weakness, Numbness, Confused, Altered mental status, Headache, Head injury, LOC PD PAST MEDICAL HISTORY - Past Medical History Past Medical History: Yes Cardiovascular: Hypertension Neuro: Migraines GI: GERD, Cirrhosis - Past Surgical History Past Surgical History: Yes HEENT: Tonsil/Adenoidectomy - Present Medications Home Medications: Ambulatory Orders Medication Instructions Recorded Confirmed Pnv No.121/Iron/Folic Acid 1 each PO DAILY #30 tablet 10/30/21 [ Multivitamin Tablet] Thiamine [Vitamin B-1] 100 mg PO DAILY #30 tablet 10/30/21 - Allergies Allergies/Adverse Reactions: Allergies Allergy/AdvReac Type Severity Reaction Status Date / Time No Known Drug Allergies Allergy Verified 12/20/22 13:59 - Social History Does the pt smoke?: No Smoking Status: Never smoker Does the pt drink ETOH?: Yes Does the pt have substance abuse?: No - POLST Patient has POLST: No POLST Status: Full Code PD ED PE NORMAL - Vitals Vital signs reviewed: Yes (tachy and hypertensiv e) - General General: Alert and oriented X 3, No acute distress, Well developed/nourished - HEENT HEENT: Atraumatic, PERRL, EOMI - Neck Neck: Supple, no meningeal sign, No bony TTP - Cardiac Cardiac: RRR, No murmur - Respiratory Respiratory: No respiratory distress, Clear bilaterally - Abdomen Abdomen: Soft, Non tender - Back Back: No CVA TTP, No spinal TTP - Derm Derm: Normal color, Warm and dry, No rash - Extremities Extremities: No deformity, No tenderness to palpate, No edema - Neuro Neuro: Alert and oriented X 3, marine painter 2-12 intact, No sensory deficit, Normal speech, Other (There is weakness to flexion extension of the thumb and to a lessor extent the index finger on the right only. All other fingers work normally. ) Eye Opening: Spontaneous Motor: Obeys Commands Verbal: Oriented GCS Score: 15 - Psych Psych: Normal mood, Normal affect Results - Vitals Vitals: Vital Signs - 24 hr 12/20/22 13:59 Temperature 36.5 C Heart Rate 118 H Respiratory 16 Rate Blood Pressure 142/90 H O2 Saturation 99 Oxygen O2 Source Room air PD Medical Decision Making - ED course Complexity details: d/w patient ED course: 57-year-old Vini Fisher has a reduced pincher grasp on the right side isolated to the thumb and forefinger. The patient has a peripheral nerve damage and he is administered a dose of dexamethasone. He is diagnosed with cervical radiculopathy. He will need a follow-up with his primary for MRI and follow-up with neurosurgery or neurology. Departure - Departure Disposition: 01 Home, Self Care Clinical Impression: Cervical radiculopathy Condition: Stable Instructions: ED Cervical Radiculopathy Follow-Up: [facility] [Provider Group] Comments: Vini, today your examination indicates a peripheral nerve entrapment. This is most likely entrapped in your neck. We have provided a single dose of dexamethasone with the objective of having this reduced swelling around the nerve enough to relieve your symptoms. This is a temporizing measure and you will need to follow-up with your primary care doctor at [facility] for a referral for MRI and potentially to see the neurologist or neurosurgeon.
[2022-12-20 15:20] VITALS: BP 161/94
== END 2022-12-20 15:19 | disposition home or self-care (01) ==
LOC: ED 13:55
DX: M54.12 Radiculopathy, cervical region (principal); Z87.820 Personal history of traumatic brain injury
CPT/HCPCS: 99282; 99283; A9270

== ENCOUNTER 2022-12-21 12:26 | Outpatient (CLI) | payer OTHER | END 2022-12-21 12:27 | disposition critical access hospital (66) | LOC: EMS 12:26 | DX: R41.0 Disorientation, unspecified (principal); R20.0 Anesthesia of skin; R29.810 Facial weakness; R53.1 Weakness; R53.81 Other malaise; R26.81 Unsteadiness on feet | CPT/HCPCS: A0425; A0429 ==

== ENCOUNTER 2022-12-21 12:41 | Emergency (ER) | payer OTHER ==
--- NOTE | 2022-12-21 12:49 | ED Physician Documentation ---
History of Present Illness - Stated complaint Stated Complaint: CODE STROKE - Additonal information Additional information: History obtained from patient as well as EMS. Patient is mildly confused. Poor historian. 57-year-old gentleman was brought into the emergency department for strokelike symptoms. Reports that at 1215 he had been sitting at a bar and was having Budweiser when he developed sudden right-sided facial droop, slurred speech and arm weakness. For EMS his blood glucose was 164. This gentleman was seen in this emergency department yesterday for concerns of right arm and hand weakness that was thought to be due to a cervical radiculopathy. He was administered dexamethasone yesterday. No imaging was completed. 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 Does not appear to be taking any medications with the exception of thiamine. PD PAST MEDICAL HISTORY - Past Medical History Cardiovascular: Hypertension Neuro: Migraines GI: GERD, Cirrhosis - Past Surgical History Past Surgical History: Yes HEENT: Tonsil/Adenoidectomy - Present Medications Home Medications: Ambulatory Orders Medication Instructions Recorded Confirmed Pnv No.121/Iron/Folic Acid 1 each PO DAILY #30 tablet 10/30/21 [ Multivitamin Tablet] Thiamine [Vitamin B-1] 100 mg PO DAILY #30 tablet 10/30/21 - Allergies Allergies/Adverse Reactions: Allergies Allergy/AdvReac Type Severity Reaction Status Date / Time No Known Drug Allergies Allergy Verified 12/21/22 13:11 - Social History Does the pt smoke?: No Smoking Status: Never smoker Does the pt drink ETOH?: Yes Does the pt have substance abuse?: No - POLST Patient has POLST: No POLST Status: Full Code Results - Vitals Vitals: Vital Signs - 24 hr 12/21/22 12/21/22 12/21/22 12:40 14:04 14:33 Temperature 37.2 C Heart Rate 97 100 88 Respiratory 13 18 18 Rate Blood Pressure 165/94 H 163/87 H 161/95 H O2 Saturation 96 93 97 12/21/22 12/21/22 12/21/22 15:03 16:16 16:43 Temperature Heart Rate 94 92 87 Respiratory 18 18 18 Rate Blood Pressure 162/100 H 162/90 H 156/93 H O2 Saturation 100 95 96 12/21/22 12/21/22 12/21/22 17:07 17:45 18:14 Temperature Heart Rate 91 87 85 Respiratory 20 18 20 Rate Blood Pressure 172/96 H 167/89 H 162/94 H O2 Saturation 95 97 97 12/21/22 18:33 Temperature Heart Rate 79 Respiratory 18 Rate Blood Pressure 166/92 H O2 Saturation 96 Oxygen O2 Source Room air - EKG (time done) 1337 Rate: Rate (enter#) (96) Rhythm: NSR Welsh: Normal Intervals: Normal OK QRS: Normal Ischemia: Q waves (inferior) Compare to prior EKG: Unchanged from prior EKG Computer interpretation: Agree with computer - Labs Labs: Laboratory Tests 12/21/22 12/21/22 12/21/22 13:03 13:03 13:03 WBC 16.7 H RBC 5.84 Hgb 19.7 H Hct 57.4 H MCV 98.3 H MCH 33.7 H MCHC 34.3 RDW 14.6 Plt Count 214 MPV 10.8 Neut # (Auto) 13.5 H Lymph # (Auto) 1.8 [place] # (Auto) 1.2 H Eos # (Auto) 0.0 Baso # (Auto) 0.1 Absolute Nucleated RBC 0.00 Nucleated RBC % 0.0 PT 11.2 INR 1.0 Sodium 130 L Potassium 3.6 Chloride 92 L Carbon Dioxide 26 Anion Gap 12.0 BUN 8 Creatinine 1.1 Estimated GFR (MDRD) 69 L Glucose 117 H Calcium 9.0 Total Bilirubin 1.3 H AST 69 H ALT 68 H Alkaline Phosphatase 132 H Troponin I High Sens Total Protein 8.2 Albumin 3.8 Globulin 4.4 H Albumin/Globulin Ratio 0.9 L Lipase 29 Nasal Adenovirus (PCR) Nasal B. parapertussis DNA (PCR) Nasal Coronavir 229E PCR Nasal Coronavir HKU1 PCR Nasal Coronavir NL63 PCR Nasal Coronavir OC43 PCR Nasal Enterovir/Rhinovir PCR Nasal Influenza B PCR Nasal Influenza A PCR Nasal Parainfluen 1 PCR Nasal Parainfluen 2 PCR Nasal Parainfluen 3 PCR Nasal Parainfluen 4 PCR Nasal RSV (PCR) Nasal B.pertussis DNA PCR Nasal C.pneumoniae (PCR) Piyush Human Metapneumo PCR Nasal M.pneumoniae (PCR) Nasal SARS-CoV-2 (PCR) Ethyl Alcohol 16.0 12/21/22 12/21/22 13:03 13:05 WBC RBC Hgb Hct MCV MCH MCHC RDW Plt Count MPV Neut # (Auto) Lymph # (Auto) [place] # (Auto) Eos # (Auto) Baso # (Auto) Absolute Nucleated RBC Nucleated RBC % PT INR Sodium Potassium Chloride Carbon Dioxide Anion Gap BUN Creatinine Estimated GFR (MDRD) Glucose Calcium Total Bilirubin AST ALT Alkaline Phosphatase Troponin I High Sens 4.1 Total Protein Albumin Globulin Albumin/Globulin Ratio Lipase Nasal Adenovirus (PCR) NOT DETECTED Nasal B. parapertussis DNA (PCR) NOT DETECTED Nasal Coronavir 229E PCR NOT DETECTED Nasal Coronavir HKU1 PCR NOT DETECTED Nasal Coronavir NL63 PCR NOT DETECTED Nasal Coronavir OC43 PCR NOT DETECTED Nasal Enterovir/Rhinovir PCR NOT DETECTED Nasal Influenza B PCR NOT DETECTED Nasal Influenza A PCR NOT DETECTED Nasal Parainfluen 1 PCR NOT DETECTED Nasal Parainfluen 2 PCR NOT DETECTED Nasal Parainfluen 3 PCR NOT DETECTED Nasal Parainfluen 4 PCR NOT DETECTED Nasal RSV (PCR) NOT DETECTED Nasal B.pertussis DNA PCR NOT DETECTED Nasal C.pneumoniae (PCR) NOT DETECTED Pyiush Human Metapneumo PCR NOT DETECTED Nasal M.pneumoniae (PCR) NOT DETECTED Nasal SARS-CoV-2 (PCR) NOT DETECTED Ethyl Alcohol - Rads (name of study) CT head stroke Radiology: Final report received (No acute hemorrhage or large territory infarction. This slightly asymmetric dense appearance of the right sigmoid sinus compared to the left possibly normal variant with differentials including thrombus.) angio neck Radiology: Final report received (Left carotid artery stenosis greater than 90% involving proximal 1.3 cm segment. Atherosclerotic plaque at the origin of the right ICA with less than 50% stenosis. Distal bilateral ICA arteries are within normal limits) angio head Radiology: Final report received (Diminutive appearing left A1 segment most li jojo represents congenital process. Rest of the visualized intracranial arteries show no hemodynamically significant stenosis or aneurysm. Right opacification of maxillary sinus suggestive of chronic sinusitis) PD Medical Decision Making - ED course Complexity details: reviewed results, re-evaluated patient, d/w patient, d/w bi consultant (Panchito; telestroke neurologist) ED course: 57-year-old male presents emergency department via EMS under code stroke protocol. At 1215 he was sitting at a bar having a beer when he developed sudden right arm weakness, facial droop and slurred speech. Blood glucose on scene was 164. On presentation to this emergency department he had an initial NIHSS of 7. This was due to facial droop, slight right arm ataxia and mild drift of this arm with extensor weakness. He was taken immediately to CT for appropriate head imaging that included angiogram. 1317: No acute hemorrhage or large territory infarction on CT head. I have spoken with Dr. Flanagan the telestroke neurologist and he is going to complete the video consultation 1400: Dr. Flanagan has indicated that he does not feel the patient is appropriate for tenecteplase. The angio of the neck indicates approximately 90% stenosis of the left ICA. He would recommend admitting the patient to obtain MRI of the head and neck. The MRI of the neck is to evaluate for cervical radiculopathy given extensor weakness in the right hand. Once the MRIs are completed he would recommend consultation with vascular. He recommends loading the patient with 325 of aspirin today but would defer Plavix administration to the recommendation of vascular surgery. I will reach out to vascular at [facility] requesting consult for this 90% ICA stenosis. 1620: I have spoken with Dr. Garcia a vascular surgeon associated with [facility]. He has been able to review the imaging. Given this patient's right- sided deficits that have not resolved, he feels that the patient would benefit from a left carotid endarterectomy and/or stenting. He has accepted the patient in transfer to [facility]. This is pending bed availability. In the interim I have ordered appropriate MRI imaging of his head and neck, should he board in the ER that long. MRI is not available today at [facility]. He did recommend starting the patient on 75 of Plavix daily though not loading him. I have discussed the plan to transfer for vascular intervention of this 90% stenosis with the patient he is in agreement for transfer. Appropriate [facility] paperwork completed. He will continue to board in the emergency department until a bed is available at [facility]. Patient will be signed out to my nighttime colleague to follow-up on any acute overnight events - Critical Care Time(min): 45 Time Includes: Direct patient care, Review records, Document care, Coordinate care (Time necessary to coordinate care with vascular surgeon as well as neurologist.) Departure - Departure Disposition: 02 Transfer Acute Care Hosp Clinical Impression: Left carotid artery stenosis Condition: Serious Record reviewed to determine appropriate education?: Yes NIHSS - Time Time: 12:45 - Level of Consciousness Level of consciousness: (0) Alert, Keenly responsive LOC Questions: (1) Answers one Q correctly LOC Commands: (0) Performs both correctly - Gaze Best Gaze: (0) Normal - Visual Visual: (0) No loss - Facial Palsy Facial Palsy: (2) Partial paralysis - Motor Arms (both separate) Motor Arm (right): (1) Drift Motor Arm (left): (0) No drift - Motor Legs (both separate) Motor Leg (right): (0) No drift Motor Leg (left): (0) No drift - Limb Ataxia Limb Ataxia: (1) Present in 1 limb - Sensory Sensory: (0) Normal - Best Language Best Language: (1) [id number] - Dysarthria Dysarthria: (1) Tkjw-ji-[id number] dysarthria - Extinction and Inattention (formally neg Extinction and inattention: (0) No abnormality - Total Score/Results Total Score/Result: 7
[2022-12-21 13:09] LABS: BASOPHILS # (AUTO) 0.1 10^3/uL (0.0-0.1); BASOPHILS % (AUTO) 0.3 %; EOSINOPHILS % (AUTO) 0.1 %; HCT - HEMATOCRIT 57.4 % (42.0-52.0); HGB - HEMOGLOBIN 19.7 g/dL (14.0-18.0); LYMPHOCYTES # (AUTO) 1.8 10^3/uL (1.5-3.5); MEAN CORPUSCULAR HEMOGLOBIN 33.7 pg (27.0-31.0); MEAN CORPUSCULAR HGB CONC 34.3 g/dL (32.0-36.0); MEAN CORPUSCULAR VOLUME 98.3 fL (80.0-94.0); MEAN PLATELET VOLUME 10.8 fL (7.4-11.4); MONOCYTES # (AUTO) 1.2 10^3/uL (0.0-1.0); MONOCYTES % (AUTO) 7.2 %; NEUTROPHILS # (AUTO) 13.5 10^3/uL (1.5-6.6); NEUTROPHILS % (AUTO) 80.9 %; PLT - PLATELET COUNT 214 10^3/uL (130-450); RED BLOOD COUNT 5.84 10^6/uL (4.70-6.10); RED CELL DISTRIBUTION WIDTH 14.6 % (12.0-15.0); WHITE BLOOD COUNT 16.7 x10^3/uL (4.8-10.8)
--- NOTE | 2022-12-21 13:16 | CT Report ---
PROCEDURE: Head W/O Stroke Protocol INDICATIONS: right sided facial droop TECHNIQUE: Noncontrast 4.5 mm thick angled axial sections acquired from the foramen magnum to the vertex, with c oronal reformats. For radiation dose reduction, the following was used: automated exposure control, adjustment of mA and/or kV according to patient size. COMPARISON: FINDINGS: Image quality: Good CSF spaces: Basal cisterns are patent. Lateral ventricles are symmetric. Volume: Generally maintained Brain: No intracranial hemorrhage. Holland-white differentiation is grossly maintained. Some hyperdensity in the straight sinus and right sigmoid sinus is present. Craniofacial structures: No displaced fracture. Intact orbits. Right maxillary opacification. IMPRESSION: No acute hemorrhage or large territory infarction. CTA findings are pending. Slightly asymmetric dense appearance of the right sigmoid sinus compared to left, possibly normal tyson tomic variant, with differential including thrombus. Attention on postcontrast CT images are pending. This study fulfills neurological imaging criteria for inclusion or exclusion of acute stroke therapie s based on available published neurological imaging guidelines. Discussed with ED by Dr. Tran. Reviewed by: Lane Tran MD on 12/21/2022 1:15 PM PST Approved by: Lane Tran MD on 12/21/2022 1:15 PM PST Station ID: [id number]
[2022-12-21 13:27] LABS: ALBUMIN 3.8 g/dL (3.2-5.5); ALBUMIN/GLOBULIN RATIO 0.9 (1.0-2.2); BILIRUBIN,TOTAL 1.3 mg/dL (0.2-1.0); CREATININE 1.1 mg/dL (0.6-1.2); POTASSIUM 3.6 mmol/L (3.5-5.0); TOTAL PROTEIN 8.2 g/dL (6.7-8.2)
[2022-12-21] MEDS ORDERED: iohexoL-300 100 ML VIAL ONE (13:27)
[2022-12-21 13:30] LABS: PT - PROTHROMBIN TIME 11.2 secs (9.9-12.6)
--- NOTE | 2022-12-21 13:34 | CT Report ---
PROCEDURE: ANGIO NECK W INDICATIONS: Right-sided facial droop CONTRAST: 80ml Omnipaque 300 TECHNIQUE: After the administration of intravenous contrast, 1.5 mm axial sections acquired from the aortic arch to the [place] of [place]. Coronal 3-D maximum intensity projection (MIP) and/or volume rendering ref ormats were then performed. For radiation dose reduction, the following was used: automated exposur e control, adjustment of mA and/or kV according to patient size. COMPARISON: None. FINDINGS: Image quality: Excellent. Carotid system: The great vessels demonstrate a conventional anatomy as they arise from the aortic a rch. The origins of the common carotid arteries appear patent. The common carotid arteries demonstr ate normal calibers and courses. There is moderate to severe atherosclerotic disease involving left c arotid bulb and 1.3 cm segment of left proximal internal carotid artery with greater than 90% stenosi s. Mild atherosclerotic calcifications are seen in distal right carotid bulb and origin of right inte rnal carotid artery with less than 50% stenosis. More distal bilateral internal carotid arteries demo nstrate normal caliber and course. Posterior circulation: The origins of the vertebral arteries appear patent. The more superior porti ons of the vertebral arteries demonstrate normal course and caliber. They join to form a normal appe aring basilar artery. Soft tissues: Visualized neck soft tissues demonstrate no suspicious abnormalities. The thyroid is normal in size and there are no incidental findings. Bones: No suspicious bony lesions. Visualized cervical spine appears normally aligned. IMPRESSION: 1. Moderate to severe atherosclerotic disease involving distal left common carotid artery and origin of left internal carotid artery causing greater than 90% stenosis involving proximal 1.3 cm segment o f left internal carotid artery. 2. Mild atherosclerotic plaques are seen in origin of right internal carotid artery with less than 50 % stenosis. 3. More distal bilateral internal carotid arteries are within normal limits. No hemodynamically signi ficant stenosis in bilateral vertebral arteries. The estimate of stenosis included in the report of the imaging study was calculated using the NASCET method CLINICAL RECOMMENDATION STATEMENTS: In patients <35 years with an ITN detected on CT, MRI, or extrathyroidal ultrasound, the Committee re commends further evaluation with dedicated thyroid ultrasound if the nodule is "e1 cm and has no susp icious imaging features, and if the patient has normal life expectancy. In patients "e35 years with an ITN detected on CT, MRI, or extrathyroidal ultrasound, the Committee r ecommends further evaluation with dedicated thyroid ultrasound if the nodule is "e1.5 cm and has no s uspicious imaging features, and if the patient has normal life expectancy. (ACR, 2014) Reviewed by: Vinod Alvarez MD on 12/21/2022 1:32 PM PST Approved by: Vinod Alvarez MD on 12/21/2022 1:32 PM PST Station ID: [id number]
[2022-12-21] MEDS ORDERED: ASPIRIN CHEW 81 MG TABLET PO STA (13:47)
--- NOTE | 2022-12-21 13:48 | CT Report ---
PROCEDURE: ANGIO HEAD W/WO INDICATIONS: Right-sided facial droop CONTRAST: 80ml Omnipaque 300 TECHNIQUE: Precontrast 4.5 mm thick angled axial sections acquired from the foramen magnum to the vertex. Afte r the administration of intravenous contrast, 1 mm thick sections acquired through the [place] of [place] is. Postcontrast 4.5 mm thick sections then re-acquired from the foramen magnum to the vertex. 3-di mensional csxqlhl-lqeuxopcp-coxwnkapvq (MIP) and/or volume rendering reformats were acquired of the c entral intracranial vasculature. For radiation dose reduction, the following was used: automated ex posure control, adjustment of mA and/or kV according to patient size. COMPARISON: CT of head from the same day. FINDINGS: Image quality: Excellent. Anterior circulation: Intracranial internal carotid arteries are normal in size and flow. Diminutiv e left A1 segment is noted which may represent congenitally small left A1 segment versus chronic high -grade stenosis. More distal portion of left anterior cerebral artery is supplied from the right side via anterior communicating artery. The flow within rest of the paired anterior cerebral arteries is normal and symmetric. The flow within the middle cerebral arteries is normal and symmetric. The ant erior communicating artery is seen. No aneurysms are seen. Posterior circulation: Visualized portions of the vertebral arteries demonstrate normal caliber, and join to form a normal appearing basilar artery. Flow within the posterior cerebral arteries is norm al and symmetric. No aneurysms are seen. CSF spaces: Ventricles are normal in size and shape. Basal cisterns are patent. No extra-axial flu id collections. Brain: No midline shift. No intracranial bleeds or masses. Holland-white matter interface appears int act. No area of abnormal intracranial enhancement. Skull and face: Calvarium and facial bones appear intact, without suspicious lesions. Sinuses: Complete opacification of right maxillary sinus is seen. IMPRESSION: 1. Diminutive appearing left A1 segment most likely represent congenital process. 2. Rest of the visualized intracranial circulation show no hemodynamically significant stenosis or an eurysm. 3. No area of abnormal intracranial enhancement is seen. 4. Opacification of right maxillary sinus suggestive of chronic sinusitis. Reviewed by: Vinod Alvarez MD on 12/21/2022 1:47 PM PST Approved by: Vinod Alvarez MD on 12/21/2022 1:47 PM PST Station ID: [id number]
[2022-12-21] MEDS ORDERED: SODIUM CHLORIDE 0.9% 1,000 ML IV STA (14:16)
[2022-12-21 15:03] LABS: B. PARAPERTUSSIS- RESP PCR PAN NOT DETECTED; B. PERTUSSIS- RESP PCR PANEL NOT DETECTED; C. PNEUMONIAE- RESP PCR PANEL NOT DETECTED; CORONAVIRUS 229E-RESP PCR NOT DETECTED; CORONAVIRUS HKU1-RESP PCR NOT DETECTED; CORONAVIRUS NL63-RESP PCR NOT DETECTED; CORONAVIRUS OC43-RESP PCR NOT DETECTED; HUMAN METAPNEUMOVIRUS NOT DETECTED; INFLUENZA A- RESP PCR PANEL NOT DETECTED; INFLUENZA B - RESP PCR PANEL NOT DETECTED; M. PNEUMONIAE- RESP PCR PANEL NOT DETECTED; PARAINFLUENZA VIRUS 1 NOT DETECTED; PARAINFLUENZA VIRUS 2 NOT DETECTED; PARAINFLUENZA VIRUS 3 NOT DETECTED; PARAINFLUENZA VIRUS 4 NOT DETECTED; RHINOVIRUS/ENTEROVIRUS NOT DETECTED; RSV- RESP PCR PANEL NOT DETECTED; SARS-CoV-2 -RESP PCR PANEL NOT DETECTED
[2022-12-21] MEDS ORDERED: CLOPIDOGREL 75 MG TABLET PO STA (16:23)
[2022-12-21] MEDS ORDERED: iohexoL-300 100 ML VIAL IVP ONE (16:50)
[2022-12-22] MEDS: ASPIRIN CHEW 81 MG TABLET PO SCH (08:26)
[2022-12-22] MEDS: PANTOPRAZOLE 40 MG TABLET PO SCH (08:26)
[2022-12-22] MEDS: CLOPIDOGREL 75 MG TABLET PO SCH (08:26)
--- NOTE | 2022-12-22 13:13 | MRI Report ---
PROCEDURE: BRAIN WO INDICATIONS: right sided deficits; ICA stenosis; ? acute infarc TECHNIQUE: Noncontrast axial T1 spin echo, axial T2 fast spin echo, sagittal and axial FLAIR, coronal T2 fast sp in echo, axial gradient echo, axial diffusion and ADC through the brain. COMPARISON: CTA head and CTA neck and CT head dated 12/21/2022. FINDINGS: Image quality: Excellent. CSF Spaces: Basal cisterns are patent. No extra-axial fluid collections. Ventricles are normal in size and shape. Brain: No intracranial masses or hemorrhage. Holland/white matter interface is normal. Brainstem appe ars normal. Diffusion-weighted images demonstrate a relatively large area of restricted water diffus ion consistent with acute infarct involving the left basal ganglia, the lenticulostriate nucleus and head of caudate and anterior limb of internal capsule, measuring approximately 3 cm in maximum diamet er. There is also scattered small areas of restricted water diffusion in the centrum semiovale, anter ior left frontal cortex, posterior left frontal cortex and parietal cortex consistent with embolic in farct. There is associated cytotoxic edema in these areas seen on the FLAIR imaging. No chronic ische amando insults. Minimal tiny foci of increased T2 signal in other locations consistent with mild small v essel ischemic change. Normal intravascular flow voids are present. Skull and face: Calvarium has normal marrow signal. Orbits appear normal. Sinuses: Subtotal opacification of the right maxillary sinus. IMPRESSION: 1. Findings are consistent with a subacute left MCA distribution infarct involving a relatively large area at the basal ganglia with multifocal small areas of cortical infarct in the left centrum semiov erick, anterior and posterior frontal cortex and parietal cortex. There is cytotoxic edema noted associ ated with the infarct on the FLAIR sequences. Findings are consistent with an embolus to the left MCA distribution. 2. Right maxillary sinusitis. Reviewed by: Lito Gonzalez MD on 12/22/2022 1:12 PM PST Approved by: Lito Gonzalez MD on 12/22/2022 1:12 PM PST Station ID: [id number]
--- NOTE | 2022-12-22 13:28 | MRI Report ---
PROCEDURE: CERVICAL SPINE WO INDICATIONS: cervical radiculopathy; extensor weak right hand TECHNIQUE: Noncontrast sagittal T1 spin echo and T2 fast spin echo, sagittal STIR, foraminal oblique sagittal T2 fast spin echo, and axial gradient echo or T2 fast spin echo through the cervical spine. COMPARISON: None. FINDINGS: Image quality: Excellent. Alignment and Curvature: There is normal bony alignment. Bone Marrow: Marrow demonstrates normal overall signal. Spinal Cord: Visualized spinal cord has normal size and signal. No cerebellar tonsillar herniation. Paraspinous Soft Tissues: No paravertebral masses. Prevertebral soft tissues are normal in thicknes s. C2-C3: No canal stenosis or foraminal stenosis. C3-C4: Disc bulge. AP diameter of the canal is 11.5 mm. Bilateral uncovertebral joint hypertrophy. Mild bilateral foraminal narrowing. C4-C5: Disc bulge. AP diameter of the canal is 11.4 mm. No significant foraminal stenosis. C5-C6: Diffuse disc bulge. Disc material abuts the cord. Posterior ligamentous hypertrophy. Mild can al stenosis. AP diameter of the canal is 9.5 mm. Bilateral uncovertebral joint hypertrophy. Bilateral moderate to severe foraminal narrowing with a degree of bilateral C6 nerve root impingement. C6-C7: No canal stenosis or foraminal stenosis. C7-T1: No canal stenosis or foraminal stenosis. IMPRESSION: 1. At C5-C6 there is mild canal stenosis and bilateral moderate to severe foraminal narrowing with a degree of bilateral foraminal C6 nerve root impingement. Reviewed by: Lito Gonzalez MD on 12/22/2022 1:27 PM PST Approved by: Lito Gonzalez MD on 12/22/2022 1:27 PM PST Station ID: [id number]
--- NOTE | 2022-12-22 18:17 | ED Physician Documentation ---
ED Addendum - Addendum Addendum: 12/22/22 18:16 The patient was signed out to me at change of shift after presenting with strokelike symptoms and being found to have significant carotid artery stenosis, pending transfer to higher level of care. The patient had reportedly been accepted at [facility] but was awaiting a bed opening up. The patient has not had any issues throughout the day. He is continue to get his medications and has had no further development of neurologic deficit. He is signed out to the oncoming emergency physician, continuing to pend transfer to higher level of care.
[2022-12-23] MEDS: ASPIRIN CHEW 81 MG TABLET PO SCH (09:30)
[2022-12-23] MEDS: CLOPIDOGREL 75 MG TABLET PO SCH (09:30)
[2022-12-23] MEDS: PANTOPRAZOLE 40 MG TABLET PO SCH (09:30)
--- NOTE | 2022-12-23 17:27 | ED Physician Documentation ---
ED Addendum - Addendum Addendum: 12/23/22 17:26 The patient is signed out to me at change of shift, continuing to await transfer to [facility], after presenting to the emergency department strokelike symptoms and being found to have a high-grade stenosis of his right carotid artery. The patient has had no further strokelike symptoms in the emergency department and no development of any new symptoms. He continues to receive his scheduled medications. [facility] has accepted him provisionally, pending bed availability and so far, has not yet had a bed open up for this patient. He will continue to board in the emergency department, awaiting final disposition. He signed out to the oncoming emergency physician at change of shift pending the above.
[2022-12-23 21:18] VITALS: BP 128/66
== END 2022-12-24 00:01 | disposition short-term general hospital (02) ==
LOC: EDUNIT# → ED 12:41
DX: I65.22 Occlusion and stenosis of left carotid artery (principal); I10 Essential (primary) hypertension; Z87.820 Personal history of traumatic brain injury; Z20.822 Contact with and (suspected) exposure to COVID-19
CPT/HCPCS: 36415; 70450; 70496; 70498; 70551; 72141; 80053; 80320; 83690; 84484; 85025; 85610; 87633; 93005; 96360; 96361; 99285; 99291; A9270; Q9967

== ENCOUNTER 2022-12-23 23:59 | Outpatient (CLI) | payer OTHER | END 2022-12-24 | disposition short-term general hospital (02) | LOC: EMS 23:59 | PROVIDERS: ATTEND Emergency Medicine | DX: I65.21 Occlusion and stenosis of right carotid artery (principal) | CPT/HCPCS: A0425; A0428 ==